=== PATIENT | female | born 1970 | race African-American/Black ===

== ENCOUNTER 2020-01-20 14:18 | Emergency (ER) | payer BC ==
[~2020-01-20] VITALS: Ht 165.1 cm; Wt 52.2 kg
--- NOTE | 2020-01-20 14:20 | NUR ---
PT BIB SELF C/O RLQ ABDOMINAL PAIN FOR 3 DAYS, PT IS AAOX4, NOT IN RESPIRATORY DISTRESS, HOOKED TO MONITOR, KEPT RESTED AND COMFORTABLE, WILL CONTINUE TO MONITOR.
--- NOTE | 2020-01-20 14:21 | NUR ---
PT SEEN AND EXAMINED BY .
--- NOTE | 2020-01-20 14:25 | NUR ---
PT IV LINE ESTABLISHED BLOOD DRAWN AND SENT TO LAB.
[2020-01-20] MEDS ORDERED: ONDANSETRON HCL/PF 4 MG/2 ML VIAL ONE (14:27)
[2020-01-20 14:36] LABS: BASOPHILS % (AUTO) 0.6 % (0.0-2.0); HEMATOCRIT 41 % (33-45); LYMPHOCYTES # (AUTO) 1.9 /CMM (0.8-4.8); LYMPHOCYTES % (AUTO) 27.5 % (20.0-44.0); MEAN CORPUSCULAR HGB CONC 32 g/dl (31.0-36.0); MEAN CORPUSCULAR VOLUME 81 fL (82-100); MONOCYTES # (AUTO) 0.5 /CMM (0.1-1.30); MONOCYTES % (AUTO) 6.6 % (2.0-12.0); NEUTROPHILS # (AUTO) 4.4 /CMM (1.8-8.9); NEUTROPHILS % (AUTO) 64.3 % (43.0-81.0); PLATELET COUNT (AUTO) 263 /CMM (150-450); RED BLOOD CELL COUNT(AUTO) 5.04 MIL/uL (4.0-5.2); WHITE BLOOD COUNT (AUTO) 6.9 K/uL (4.3-11.0)
[2020-01-20] MEDS ORDERED: MORPHINE SULFATE INJ 4 MG/ML DISP.SYRIN ONE ×2 (14:40→16:32)
[2020-01-20 14:51] LABS: ALBUMIN 4.2 g/dL (3.4-5.0); BILIRUBIN,DIRECT 0.1 mg/dL (0.0-0.2); BILIRUBIN,TOTAL 0.4 mg/dL (0.2-1.0); CALCIUM, SERUM 9.6 mg/dL (8.5-10.1); CREATININE 0.9 mg/dL (0.6-1.3); POTASSIUM 3.3 mmol/L (3.5-5.1); TOTAL PROTEIN, SERUM 8.3 g/dL (6.4-8.2)
[2020-01-20] MEDS ORDERED: ONDANSETRON HCL/PF 4 MG/2 ML VIAL IVP ONE (15:00)
[2020-01-20] MEDS ORDERED: IV NS 0.9% 1,000 ML BAG IV ONE (15:00)
[2020-01-20] MEDS ORDERED: MORPHINE SULFATE INJ 2 MG/ML DISP.SYRIN IV ONE ×2 (15:00→16:30)
[2020-01-20 16:33] LABS: APPEARANCE,URINE Clear (CLEAR); BILIRUBIN,URINE Negative (NEGATIVE); BLOOD, URINE Trace-lysed Ery/uL (NEGATIVE); COLOR,URINE Yellow (YELLOW); KETONES,URINE Negative (NEGATIVE); LEUKOCYTE ESTERASE ,URINE Negative (NEGATIVE); NITRITE, URINE Negative (NEGATIVE); PROTEIN,URINE Negative (NEGATIVE); UGLUCOSE Negative (NEGATIVE); UROBILINOGEN,URINE 0.2 EU/dL (0.2)
[2020-01-20 16:34] LABS: BACTERIA,URINE None seen /HPF (None Seen); RBC,URINE 0-2 /HPF (0-2); SQUAMOUS EPITHELIAL CELL,UR Few /HPF (None Seen); WBC,URINE 0-2 /HPF (0-3)
[2020-01-20] MEDS ORDERED: KETOROLAC TROMETHAMINE INJ 30 MG/ML VIAL ONE (17:17)
[2020-01-20] MEDS ORDERED: LORAZEPAM INJ 2 MG/ML VIAL ONE (17:29)
[2020-01-20] MEDS ORDERED: LORAZEPAM INJ 2 MG/ML VIAL IV ONE (17:30)
[2020-01-20] MEDS ORDERED: KETOROLAC TROMETHAMINE INJ 30 MG/ML VIAL IV ONE (17:30)
--- NOTE | 2020-01-20 18:39 | NUR ---
Patient discharged to home in stable condition. Written and verbal after care instructions given. Patient verbalizes understanding of instruction.IV removed. Catheter intact and site benign. Pressure and 4x4 applied to site. No bleeding noted. Pt ambulatory with a steady gait
[2020-01-20 18:40] VITALS: BP 142/83
== END 2020-01-20 18:40 | disposition home or self-care (01) ==
LOC: ER 14:20
DX: N23 Unspecified renal colic (principal)
CPT/HCPCS: 36415; 74176; 80048; 80076; 81001; 83690; 84703; 85025; 85730; 96374; 96375; 96376; 99284; J1885; J2060; J2270 ×2; J2405; J7030; 81000-TC

== ENCOUNTER 2020-07-19 12:25 | Emergency (ER) | payer BC, OTHER ==
[~2020-07-19] VITALS: Ht 160 cm; Wt 54.4 kg
[2020-07-19 12:39] VITALS: BP 140/86
--- NOTE | 2020-07-19 12:59 | NUR ---
COVID PCR SWAB DONE AND SENT TO LAB.
--- NOTE | 2020-07-22 09:30 | NUR ---
called on the number on-file,number disconnected
--- NOTE | 2020-07-22 09:32 | NUR ---
patient aware per so
--- NOTE | 2020-07-22 13:08 | NUR ---
staff notified about + PCR covid results.
== END 2020-07-19 13:00 | disposition home or self-care (01) ==
LOC: ER 12:29
DX: U07.1 COVID-19 (principal); Z87.19 Personal history of other diseases of the digestive system; Z90.49 Acquired absence of other specified parts of digestive tract
CPT/HCPCS: 99283; C9803; U0003